=== PATIENT | female | born 1990 | race Caucasian/White ===

== ENCOUNTER 2020-02-07 09:54 | Emergency (ER) | payer OTHER, SELFPAY ==
--- NOTE | 2020-02-07 10:06 | CT_ITS ---
CT HEAD WITHOUT IV CONTRAST INDICATION: Container fell on head. COMPARISON: None available. TECHNIQUE: Multidetector CT acquisitions of the head was obtained without IV contrast. This CT examination was performed using dose optimization techniques as appropriate, variously including the following: *Automated exposure control *Adjustment of mA and/or kV according to patient size (this includes techniques or standardized protocols for targeted exams where dose is matched to indication/reason for exam; i.e. extremities or head) *Use of iterative reconstruction technique FINDINGS: There is no intracranial hemorrhage, hydrocephalus, extra-axial surface collection, midline shift, or other herniation pattern. Live to white matter differentiation is diffusely maintained without evidence of an evolved acute territorial infarct. The basilar cisterns are preserved. No significant soft tissue abnormality. No acute osseous abnormality. The paranasal sinuses and the mastoid air cells are well aerated. CT/CT head/brain wo con IMPRESSION: No acute intracranial abnormality.
--- NOTE | 2020-02-07 10:06 | ED_ITS ---
HPI - Head Injury General Chief complaint: Head Injury Stated complaint: head pain/injury Time Seen by Provider: 02/07/20 09:59 Source: patient Mode of arrival: ambulatory History of Present Illness HPI Narrative: 29-year-old female presenting to ED complaining of headache/injury s/p heavy container falling on head about 1 hour [employer]. Reports was emptying cabinet when heavy object fell out and hit her head. Reports feeling weird with intermittent blurry vision since incident. Denies LOC, nausea/vomiting, numbness/tingling, weakness, vision loss Denies taking anticoagulation MD Complaint: head injury Related Data Allergies Allergy/AdvReac Type Severity Reaction Status Date / Time avocado Allergy Unknown BODY Unverified 11/04/19 16:05 BEING RIPPED APART Penicillins [PENICILLINS] Allergy Unknown N/A Unverified 11/04/19 16:05 LIQUIDE DYE Allergy Unknown N/A Uncoded 11/04/19 16:05 Review of Systems Review of Systems: Constitutional: No Weight loss, No Fever, No Chills ENT/Mouth: + intermittent blurry vision Cardiovascular: No Chest Pain, No SOB Gastrointestinal: No Nausea, No Vomiting Musculoskeletal: No joint pain, No Joint Swelling, No neck pain Skin: No Skin Lesions, No rash Neuro: No Weakness, No Numbness, No Paresthesias, + headache Yes all other systems are reviewed and are negative Neurologic: Denies Sensory deficit (Neuro) [facility] Past Medical History Attestation statement: The following information was validated with the patient. Social History Social History Advance Directives: No Advance Directives Information Provided: No Physical Exam Vital Signs: Vital Signs: Last Vital Signs Temp 97.0 F 02/07/20 10:18 Pulse 77 02/07/20 10:18 Resp 18 02/07/20 10:18 BP 135/87 02/07/20 10:18 Pulse Ox 98 02/07/20 10:18 Body Mass Index 31.8 Const: General: cooperative and healthy appearing Orientation/consci ousness: patient oriented x3 Limitations: no limitations HENMT: Head: Yes normal to inspection, Yes No palpable skull fracture present, Yes atraumatic, No Simon's sign, No hematoma, No palpable skull fracture, No raccoon eyes and No scalp tenderness Ears: hearing grossly normal bilaterally General nose exam: Normal external nose present Face and sinus: Yes normal facial exam Eyes: General: appearance normal, both eyes and all related structures Pupils: Equal, round and reactive pupils present EOM: EOMs intact bilaterally Neck: Other: No midline cervical spinous tenderness Neck: Yes normal visual inspection and Yes no meningeal signs Resp: Effort & Inspection: normal respiratory effort Cardio: Rate: regular rate Skin: Rashes: no rashes Wounds: no wounds Neuro: General: patient oriented x3, gait normal, tone normal, moves all extremities, no meningeal signs, no focal motor deficits and CN's II-XI intact bilaterally Cranial nerves: Yes Equal, round and reactive pupils present Gait exam (Neuro): Normal gait present Motor exam (neuro): 5/5 motor strength present throughout Sensory Exam: No Sensory deficit (Neuro) Coordinat ion: [id number] test normal Romberg Test: Negative Extrem: General: Yes normal to inspection Course Course Course Narrative: * 1055--head CT unremarkable. Imaging results discussed with patient including worrisome signs and symptoms and strict return precautions. Patient verbalized understanding feel safe for discharge home to follow-up with PCP MDM - Head Injury MDM Narrative Medical decision making narrative: On exam VSS, NAD/well-appearing, no midline cervical spine tenderness, no appreciable head trauma or palpable fracture. Likely the concussion vs bruising/hematoma. Low concern for ICH/ fracture [place] head CT rule negative Plan: Head CT per patient request Discharge Plan Discharge Clinical Impression: Closed head injury Qualifiers: Encounter type: initial encounter Qualified Code(s): S09.90XA - Unspecified injury of head, initial encounter Patient Disposition: Home, Self-Care Instructions: Head Injury (ED) Additional Instructions: Your head CT was unremarkable today in the ED. Ice painful area Take Tylenol and Motrin at home every 4-6 hours as directed on the bottle Practice brain rest for the next few days, avoid bright lights, screens Follow-up with her primary care doctor as needed if her symptoms persist or worsen, you have constant worsening headache, vision changes, numbness/tingling, or weakness return to the ED Referrals: Palma Perez DO [Primary Care Provider] - 2 days
[2020-02-07 10:18] VITALS: BP 135/87; PULSE 77; RESP 18; TEMP 36.1; O2SAT 98; BMI 31.8
[2020-02-07] MEDS: Acetaminophen 325 MG TABLET 650 MG PO (10:32)
== END 2020-02-07 11:02 | disposition home or self-care (01) ==
PROVIDERS: Emergency Provider Emergency Medicine; PCP Internal Medicine
DX: S09.90XA Unspecified injury of head, initial encounter (principal); W20.8XXA Other cause of strike by thrown, projected or falling object, initial encounter; Y93.89 Activity, other specified; Y92.010 Kitchen of single-family (private) house as the place of occurrence of the external cause; Y99.9 Unspecified external cause status
CPT/HCPCS: 70450; 99283; 99284

== ENCOUNTER 2020-10-06 10:43 | Emergency (ER) | payer OTHER, SELFPAY ==
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
[2020-10-06 11:09] VITALS: BP 131/84; PULSE 75; RESP 18; TEMP 36.7; O2SAT 99; BMI 31.8
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
== END 2020-10-06 13:35 | disposition home or self-care (01) ==
PROVIDERS: Emergency Provider Internal Medicine; PCP Physician Assistant Medical
DX: S06.0X0A Concussion without loss of consciousness, initial encounter (principal); S13.4XXA Sprain of ligaments of cervical spine, initial encounter; V44.5XXA Car driver injured in collision with heavy transport vehicle or bus in traffic accident, initial encounter; Y93.89 Activity, other specified; Y92.411 Interstate highway as the place of occurrence of the external cause; Y99.9 Unspecified external cause status
CPT/HCPCS: 70450; 72125; 99283; 99284

== ENCOUNTER 2021-03-11 21:09 | Emergency (ER) | payer OTHER, SELFPAY ==
--- NOTE | ~2021-03-11 | XR_ITS ---
EXAMINATION: XR SHOULDER, LEFT CLINICAL INFORMATION: Pain. Fall. COMPARISON: None TECHNIQUE: Three views of the left shoulder. FINDINGS: Humeral head is well-seated in the glenoid fossa. I do not appreciate any acute fracture or dislocation. No bony destructive lesions or significant degenerative changes. Visualized left upper chest unremarkable. XR/XR shoulder LT min 2V IMPRESSION: No acute bony abnormality.
[2021-03-11 21:21] VITALS: BP 136/84; PULSE 85; TEMP 37.2; O2SAT 100; BMI 30.1
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
[2021-03-11] MEDS: Ibuprofen 400 MG TABLET PO (23:07)
[2021-03-11] MEDS: Lidocaine 4 % Patch ADH..PATCH 1 PATCH TRANSDERMA (23:08)
[2021-03-11] MEDS: Acetaminophen 325 MG TABLET 975 MG PO (23:08)
== END 2021-03-11 23:27 | disposition home or self-care (01) ==
PROVIDERS: Emergency Provider Student in an Organized Health Care Education/Training Program
DX: M25.512 Pain in left shoulder (principal)
CPT/HCPCS: 73030; 99284

== ENCOUNTER → 2021-11-07 08:38 | Outpatient (BNVA) | payer OTHER, SELFPAY | PROVIDERS: PCP Internal Medicine; Visit Provider Internal Medicine Rheumatology | DX: A69.20 Lyme disease, unspecified (principal); R53.83 Other fatigue; R53.1 Weakness | CPT/HCPCS: 99202 ==

== ENCOUNTER 2022-03-23 13:00 | Emergency (ER) | payer OTHER, SELFPAY ==
[2022-03-23 13:04] VITALS: BP 126/96; PULSE 83; RESP 20; TEMP 36.8; O2SAT 99; BMI 32.7
--- NOTE | 2022-03-23 13:22 | ED_ITS ---
HPI - General Adult General Chief complaint: General Medical Stated complaint: vaginal issues Time Seen by Provider: 03/23/22 13:13 Source: patient Mode of arrival: ambulatory Limitations: no limitations History of Present Illness HPI narrative: 31 yo female presents to the ER for evaluation of urinary urgency, frequency and dysuria for the last few days. 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 She was started on an antibiotic but has not picked it up yet. She denies any vaginal discharge. She reports the pelvic pain has resolved. She states she is prone to BV. Denies history of recurrent UTIs. She is on control and does not get her period. She denies N/V/D, back pain or fevers. MD complaint: dysuria, frequency and urgency Onset (ago): day(s) Location: pelvis and genitals Radiation: non-radiation Severity: moderate Severity scale (1-10): 8 Quality: burning and aching Pain Consistency: constant Relieving factors: none Exacerbating factors: other (urination) Associated symptoms: other (pink on the toilet paper when she wiped today, no gross hematuria) Treatments prior to arrival: none Related Data Home Medications Medication Instructions Recorded Confirmed drospiren-sivan.estrad-l.mefol 3 1 tab PO DAILY 11/07/21 11/07/21 mg-0.02 mg-0.451 mg(24)/0.451 mg(4)tablet Previous Rx's Medication Instructions Recorded acetaminophen 500 mg tablet 1,000 mg PO QID PRN fever or pain 10/06/20 (Tylenol Extra Strength) #14 tabs ibuprofen 800 mg tablet 800 mg PO Q8H PRN pain #14 tabs 10/06/20 nitrofurantoin 100 mg PO Q12H 7 days #14 caps 03/23/22 monohydrate/macrocrystals 100 mg capsule (Macrobid) phenazopyridine 100 mg tablet 100 mg PO Q8H 6 doses #6 tabs 03/23/22 (Pyridium) Allergies Allergy/AdvReac Type Severity Reaction Status Date / Time avocado Allergy Unknown BODY Verified 03/11/21 21:27 BEING RIPPED APART Penicillins [PENICILLINS] Allergy Unknown Unknown Verified 11/07/21 08:46 LIQUIDE DYE Allergy Unknown N/A Uncoded 11/04/19 16:05 Review of Systems Review of Systems: Yes all other systems are reviewed and are negative [facility] Past Medical History Medical History (Updated 03/23/22 @ 14:12 by DEMETRIS Moraes) Insomnia No known health problems Surgical History (Updated 11/07/21 @ 08:47 by MARK Khalil) No history of previous surgery Family History Family History (Updated 11/07/21 @ 08:48 by MARK Khalil) Maternal Grandmother Arthritis Father Thyroid disease Social History Social History (Updated 11/07/21 @ 08:55 by MARK Khalil) Household Members: Family Alcohol intake: current Alcohol intake frequency: does not drink Patient Tobacco Use Status: Never used Tobacco Substance Use Type: Marijuana Advance Directives: No Advance Directives Information Provided: No Current occupational status: employed 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 Oriented X3. tearful, anxious HEENT: normal inspection CVS: Normal heart rate and rhythm. Pulses normal. Respiratory: No respiratory distress. Skin: Skin warm and dry. Normal skin color. Normal skin turgor. No rashes. AbdL suprapubic tenderness without rebound or guarding, normal active BS x4. pelvic deferred (done yesterday at [facility]) Extremities: normal inspection x4. Neuro: Oriented X 3. No motor deficit. No sensory deficit. Course Course Course Narrative: 31 yo female presenting with increased urinary frequnecy, urgency for the last few days along with new onset dysuria that started today with pink tinge when she wiped today. No vaginal discharge. 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 Clinical presentation is c/w UTI. Will check UA and upreg Reevaluation(s) Reevaluation #1: UA positive for infection, negative for . Will treat with Macrobid and Pyridium. Stable for discharge home. Patient counseled. Medical Decision Making Medical Decision Making MDM Narrative: 31 yo female presenting with urinary symptoms c/w UTI. UA sent showing UTI. Differential Diagnosis Differential Diagnoses: The differential diagnosis associated with the presentation includes UTI, cystitis, STI, pyelonephritis, ovarian cyst, doubt torsion, no current pain Lab Data MDM Lab Attestation statement: I reviewed the patient's lab results. +UA Labs: Lab Results 03/23/22 03/23/22 Range/Units 13:46 13:46 Urine Color Yellow Urine Appearance Cloudy Urine pH 8.0 (5.0-9.0) Ur Specific [place] 1.015 (1.005-1.025) Urine Protein Trace (Neg-Trace) mg/dL Urine Glucose (UA) Negative (Negative) mg/dL Urine Ketones Negative (Negative) mg/dL Urine Blood Small (1+) H (Negative) Urine Nitrite Negative (Negative) Ur Leukocyte Esterase Moderate (2+) H (Negative) Urine RBC >20 H (0-2) /HPF Urine WBC >50 H (0-5) /HPF Ur Squamous Epith Cells 0-2 (0-2) /HPF Urine Bacteria 1+ (None Seen) Hyaline Casts 0-2 (0-2) /LPF Urine Test NEGATIVE (NEGATIVE) External Record Review External record reviewed: Outpatient record and Prior outpatient labs Tests considered The following testing was considered but not selected: labs and std test considered - was just tested yesterday Prescription Management I considered prescription management with: Pain Medication and Antibiotic NSAID and tylenol for pain, PRN pyridium and abx Critical Care Time Critical Care Time Critical Care Time: No Discharge Plan Discharge Clinical Impression: Acute UTI Patient Disposition: Home, Self-Care Instructions: Urinary Tract Infection in Women (ED) Additional Instructions: Your urinalysis was positive for infection. Your urine was negative for . Take the prescribed antibiotic as directed. Complete the entire course and not miss any doses. Take the prescribed Pyridium medication for bladder pain, this Tino turn your urine orange and that is a normal side effect. Drink plenty of fluids. No sexual activity until it your symptoms are completely resolved and you have completed antibiotics. Follow-up with your OBGYN. If you develop new or worsening symptoms call 911 or come back to the ER for further evaluation. Prescriptions: New phenazopyridine [Pyridium] 100 mg tablet 100 mg PO Q8H Qty: 6 0RF nitrofurantoin monohyd/m-cryst [Macrobid] 100 mg capsule 100 mg PO Q12H 7 Days Qty: 14 0RF Rx Instructions: must administer with a meal/food No Action ibuprofen 800 mg tablet 800 mg PO Q8H PRN (Reason: pain) Qty: 14 0RF acetaminophen [Tylenol Extra Strength] 500 mg tablet 1,000 mg PO QID PRN (Reason: fever or pain) Qty: 14 0RF drospirenone-e.estradiol-lm.FA 3-0.02-0.451 mg (24) (4) tablet 1 tab PO DAILY
[2022-03-23 13:58] LABS: UPreg QC Valid YES; Urine Pregnancy NEGATIVE (NEGATIVE)
[2022-03-23 14:07] LABS: Appearance Urine Cloudy; Color Urine Yellow; Glucose Urine UA Negative (Negative); Leukocyte Esterase Urine Moderate (2+) (Negative); Nitrite Urine Negative (Negative); Specific Gravity - Urine 1.015 (1.005-1.025); UMIC TRIGGER UACC YES; Urine Blood Small (1+) (Negative); Urine Ketones Negative (Negative); Urine Protein Trace mg/dL (Neg-Trace)
[2022-03-23 14:08] LABS: Bacteria Urine 1+ (None Seen); Hyaline Casts Urine 0-2 /LPF (0-2); RBC Urine >20 /HPF (0-2); Squamous Epithelial Cell Urine 0-2 /HPF (0-2); UACC Culture Trigger YES; WBC Urine >50 /HPF (0-5)
[2022-03-23] MEDS: Nitrofurantoin Monohyd/M-Cryst 100 MG CAPSULE PO (14:17)
[2022-03-23] MEDS: Phenazopyridine HCL 100 MG TABLET PO (14:17)
== END 2022-03-23 14:22 | disposition home or self-care (01) ==
PROVIDERS: Physician Assistant; Emergency Provider Student in an Organized Health Care Education/Training Program
DX: N39.0 Urinary tract infection, site not specified (principal); F12.90 Cannabis use, unspecified, uncomplicated
CPT/HCPCS: 81001; 81003; 81025; 87086; 99283

== ENCOUNTER 2024-04-24 11:53 | Emergency (ER) | payer OTHER, SELFPAY ==
--- NOTE | ~2024-04-24 | XR_ITS ---
CLINICAL HISTORY: back pain s p lifting 3 views lumbar spine Comparison: None Findings: Normal alignment. No acute fractures or dislocation. No significant degenerative change. IMPRESSION: No acute findings. This document has been electronically signed by: Zain Alcazar MD on 04/24/2024 12:43:49
--- NOTE | ~2024-04-24 | XR_ITS ---
CLINICAL HISTORY: mid back pain after lifting child 3 views thoracic spine Comparison: None Findings: Normal alignment. No acute fractures or dislocation. No significant degenerative change. IMPRESSION: No acute findings. This document has been electronically signed by: Zain Alcazar MD on 04/24/2024 12:43:57
[2024-04-24 11:58] VITALS: BP 111/75; PULSE 80; RESP 20; TEMP 37; O2SAT 100; BMI 34.0
--- NOTE | 2024-04-24 11:59 | ED.BACK ---
HPI - Back Pain/Injury General Chief Complaint: Back Pain/Injury Stated Complaint: back pain Time Seen by Provider: 04/24/24 13:43 Source: patient Mode of arrival: ambulatory Limitations: no limitations History of Present Illness ED Provider: Zoie King NP HPI Narrative: Patient is a 33 year old female with past medical history of multiple sclerosis on Bruimvi followed by [facility] who presents emergency department for evaluation of back pain. She reports over the past 2 days she has been experiencing pain to the midthoracic back, onset 1 day following lifting her 70lb dog into the bathtub, described as an aching sensation. Denies radiation of pain. Exacerbates with movement of torso and arms. Previously using naproxen with some relief. Reports last taking naproxen 1 hour prior to arrival. Denies fevers, chills, burning with micturition, urinary frequency/urgency/hesitancy, bladder or bowel dysfunction, numbness or tingling of the perineum or bilateral legs. Denies any recent surgical procedures, any known immune compromising conditions, personal history of cancer, or IV drug usage. MD elicited complaint: back pain Related Data Home Medications ?Medication ?Instructions ?Recorded ?Confirmed drospiren-e.estrad-l.mefol 3 1 tab PO DAILY 11/07/21 11/07/21 mg-0.02 mg-0.451 mg(24)/0.451 mg(4)tablet Previous Rx's ?Medication ?Instructions ?Recorded acetaminophen 500 mg tablet 1,000 mg (2 x 500 mg) PO QID PRN 10/06/20 (Tylenol Extra Strength) fever or pain #14 tabs ibuprofen 800 mg tablet 800 mg PO Q8H PRN pain #14 tabs 10/06/20 nitrofurantoin 100 mg PO Q12H 7 days #14 caps 03/23/22 monohydrate/macrocrystals 100 mg capsule (Macrobid) phenazopyridine 100 mg tablet 100 mg PO Q8H 6 doses #6 tabs 03/23/22 (Pyridium) Allergies Allergy/AdvReac Type Severity Reaction Status Date / Time avocado Allergy Unknown BODY Verified 04/24/24 12:03 BEING RIPPED APART Penicillins [PENICILLINS] Allergy Unknown Unknown Verified 04/24/24 12:03 LIQUIDE DYE Allergy Unknown N/A Uncoded 04/24/24 12:03 Review of Systems Review of Systems: Yes all other systems are reviewed and are negative [facility] Past Medical History Attestation statement: The following information was validated with the patient. Source: old records reviewed Medical History Insomnia No known health problems Surgical History No history of previous surgery Family History Family History (Updated 11/07/21 @ 08:48 by MARK Khalil) Maternal Grandmother Arthritis Father Thyroid disease Social History Social History (Updated 11/07/21 @ 08:55 by MARK Khalil) Household Members: Family Alcohol intake: current Alcohol intake frequency: does not drink Patient Tobacco Use Status: Never used Tobacco Smoked in Last 30 Days: No Use of substances other than those prescribed or required for medical reasons: Yes Substance Use Type: Marijuana Substance Use Frequency: Occasionally Advance Directives: No Advance Directives Information Provided: Yes Patient : No Current occupational status: employed 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 No acute distress.?Normal affect. Eyes: Pupils equal, round and reactive to light.? ENT: Pharynx normal.?? Neck: Normal inspection.? Neck supple.?? CVS: Heart sounds normal. Normal heart rate and rhythm.? Pulses normal; bilateral radial pulses 2+, bilateral posterior tibial/dorsalis pedis pulses 2+.? Respiratory: No respiratory distress.? Lung sounds clear to auscultation bilaterally?? Abdomen: Soft and non-tender. Normoactive bowel sounds. No pulsatile mass.?? Skin: Skin warm and dry.? Normal skin color.? Normal skin turgor.?? Extremities: No lower extremity edema.? No calf ttp? Back: + mild tight lower thoracic paraspinal muscular tenderness No CVA tenderness. No midline spinal tenderness, step-off's, or deformity. Full ROM intact in bilateral lower extremities. Straight leg test negative on right; Straight leg test negative on left. No rashes, lesions, areas of induration or fluctuance, or signs of infection noted., Neuro: Moves all extremities spontaneously. 5/5 strength in hip extension/flexion, abduction, adduction. Sensation to light touch intact bilaterally. Patellar and Achilles reflex 2+ bilaterally. No ataxia, gait normal and steady.. No focal neuro deficits. Course Course Course Narrative: This is a Rapid Medical Examination (RME) performed by Flor Jaramillo PA-C in triage. Full HPI, ROS, assessment and treatment plan per primary provider in the Main ED. 33 yo female hx of MS on Bruimvi here for eval of mid back pain x2 days. pain began the morning after after lifting her child into the bath tub. described as an aching sensation to central back. no radiation down LEs. pain is worse w/ movement. took naproxen w/ some relief. last naproxen was 1 hr ago. no bowel or bladder incontinence or retention, no saddle anesthesia, no numbness/tingling/weakness of the LEs. +appears uncomfortable. ambulating w/ slow gait Plan: xrs Reevaluation(s) Reevaluation #1: advised by nursing staff the patient has ultimately decided to leave the department without completing treatment. Patient became agitated and angry yelling at staff. She had contacted the hospital switchboard, contacted hospital security as well as calling 911 reporting that nobody has been in the room to see her, that nobody was addressing her pain. She reported to another staff member I have MS I need something stronger than a muscle relaxer for wanted to stay at home and play around with pain pills I could have done that myself . Yelling out profanities, verbally insulting multiple staff members. she subsequently trashed the room, throwing water and food all throughout the room flipping her mattress over before ultimately walking out. Time: 16:54 Medications Administered Discontinued Medications Generic Name Dose Route Start Last Admin Trade Name Freq PRN Reason Stop Dose Admin Cyclobenzaprine HCl 10 mg 04/24/24 14:58 04/24/24 15:24 Cyclobenzaprine Hcl 10 Mg Tablet PO 04/24/24 14:59 10 mg ONCE ONE Administration Medical Decision Making Medical Decision Making [facility] Narrative: Patient is a 33 year old female with past medical history of multiple sclerosis on Bruimvi who presents emergency department for evaluation of lower thoracic back pain, no midline tenderness, step-offs, deformities, pain is rather to the lower thoracic paraspinal muscle region on the right. pain began 1 day following lifting her dog into the bathtub and is exacerbated with movement of the torso as well as the upper extremities. clinically have higher suspicion for muscular etiology although can not completely exclude herniated disc. On neurological exam there are no deficits. No findings to suggest cauda equina syndrome. XR of the lumbar and thoracic spine are without acute osseous abnormality, no apparent fracture. No recent fevers, unintentional weight loss, history of IVDA, high-risk past medical history, immunosuppression, recent surgery or lumbar puncture to suggest spinal infection, epidural abscess, malignancy. Not consistent with AAA or dissection. No genitourinary symptoms, afebrile, no CVA tenderness, unlikely urinary tract infection, pyelonephritis, renal colic. No history of nephrolithiasis/ureteral calculi. We will try cyclobenzaprine symptomatic management at this time. Differential Diagnosis Differential Diagnoses: The differential diagnosis associated with the presentation includes ( see narrative above) Admission/Observation Consideration of admission/observation: Escalation of care including admission/observation considered ( see narrative above) Lab Data [facility] Lab Attestation statement: I reviewed the patient's lab results. ( urinalysis without evidence of infection or microscopic hematuria to favor acute genitourinary pathology) Labs: Lab Results 04/24/24 Range/Units 14:12 Urine Color Yellow Urine Appearance Clear Urine pH 7.5 (5.0-9.0) Ur Specific [place] <= 1.005 (1.005-1.025) Urine Protein Negative (Neg-Trace) mg/dL Urine Glucose (UA) Negative (Negative) mg/dL Urine Ketones Negative (Negative) mg/dL Urine Blood Negative (Negative) Urine Nitrite Negative (Negative) Ur Leukocyte Esterase Negative (Negative) Urine RBC 0-2 (0-2) /HPF Urine WBC 0-5 (0-5) /HPF Ur Squamous Epith Cells 0-2 (0-2) /HPF Urine Bacteria None Seen (None Seen) Hyaline Casts 0-2 (0-2) /LPF Urine Test NEGATIVE (NEGATIVE) Independent Interpretation I performed an independent interpretation of an: Plain X-Ray Radiology Impression Discussion of test interpretation with radiology: I have reviewed the radiologist's reading. Radiologist Impression: 3 views thoracic spine Comparison: None Findings: Normal alignment. No acute fractures or dislocation. No significant degenerative change. IMPRESSION: No acute findings. 3 views lumbar spine Comparison: None Findings: Normal alignment. No acute fractures or dislocation. No significant degenerative change. IMPRESSION: No acute findings. External Record Review External record reviewed: Outpatient record Prescription Management I considered prescription management with: Pain Medication Discharge Plan Discharge Clinical Impression: Back pain Patient Disposition: Left W/O Completing Treatment Prescriptions: No Action ibuprofen 800 mg tablet 800 mg PO Q8H PRN (Reason: pain) Qty: 14 0RF acetaminophen [Tylenol Extra Strength] 500 mg tablet 1,000 mg PO QID PRN (Reason: fever or pain) Qty: 14 0RF phenazopyridine [Pyridium] 100 mg tablet 100 mg PO Q8H Qty: 6 0RF nitrofurantoin monohyd/m-cryst [Macrobid] 100 mg capsule 100 mg PO Q12H 7 Days Qty: 14 0RF Rx Instructions: must administer with a meal/food drospirenone-e.estradiol-lm.FA 3-0.02-0.451 mg (24) (4) tablet 1 tab PO DAILY Interventions: ED Discharge Assessment Last Done: 04/24/24 16:50 Discharge Date/Time: 04/24/24 16:52 Print Language: Sami
--- OUTSIDE RECORDS SUMMARY | 2024-04-24 13:26 | XMS_ITS | Encounter Summary ---
Author Organization [facility] Address [address] [place] [address] Phone Care Team Providers Care Home Health Occupational Therapist Name Role Phone Unavailable Primary Care Provider Unavailabl e Encounter Details Date Type Department Care Team (Late st Contact Info) Description 11/20/2010 Documentation [facility] [address] [place] [address] Family Medicine, Physician [address] [place], [place] [id number] Social History Tobacco Use Types Packs/Day Years Used Date Smoking Tobacco: Never Assessed Comments Unknown Sex and Gender Information Value Date Recorded Sex Assigned at Not on file Legal Sex Female 4:36 PM EDT Gender Identity Not on file Sexual Orientation Not on file documented as of this encounter Plan of Treatment Not on file documented as of this encounter Visit Diagnoses Not on filedocumented in this encounter
--- OUTSIDE RECORDS SUMMARY | 2024-04-24 13:26 | XMS_ITS | Encounter Summary ---
Author Organization [facility] Address [address] [place] [id number] Phone Care Team Providers Care New Order Clerk Name Role Phone Unavailable Primary Care Provider Unavailabl e Encounter Details Date Type Department Care Team (Late st Contact Info) Description 11/29/2015 Documentation [facility] [place] [address] Family Medicine, Physician [facility] [place], [place] [phone] Social History Tobacco Use Types Packs/Day Years [...]
--- OUTSIDE RECORDS SUMMARY | 2024-04-24 13:28 | XMS_ITS | Encounter Summary ---
Author Organization [facility] Address [address] [place] [address] Care Team Providers Care Cycle Specialist Name Role Phone Mara Barakat MD Primary Care Provider [phone] Reason for Visit * Reason Onset Date Comments AUTH NOT REQRD, SOLUMEDROL 04/15/2024 Encounter Details Date Type Department Care Team (Late st Contact Info) Description 04/15/2024 Telephone [facility] [address] [facility] [address] [place] [address] Fabi Arguello, DEMETRIS [address] [place] [address] [place] [address] AUTH NOT REQRD, SOLUMEDROL Social History Tobacco Use Types Packs/Day Years Used Date Smoking Tobacco: Never Smokeless Tobacco: Never Alcohol Use Standard Drinks/Week Comments Not Currently 0 (1 standard drink = 0.6 oz pur e alcohol) Comments Unknown Sex and Gender Information Value Date Recorded Sex Assigned at Not on file Legal Sex Female 4:36 AM EST Gender Identity Not on file Sexual Orientation Not on file documented as of this encounter Progress Notes * Keagan Matthews - 04/15/2024 2:36 PM EST Per Latia @ [facility] medical drug auth dept- auth not reqrd for [id number] ot [id number] (call #JuanityS,04/15/24,2:22pm) documented in this encounter Plan of Treatment Upcoming Encounters Date Type Department Care Team (Late st Contact Info) Description 06/01/2024 3:30 PM EDT Office Visit [facility] [place] [address] [facility] [address] [place] [phone] Saul Horn MD [address] [facility] [address] [place] [phone] 06/17/2024 2:30 PM EDT Office Visit Adult Medicine [facility] [place] [address] [place] [address] Mara Barakat MD [address] [place] [address] 06/30/2024 1:00 PM EDT Appointment [facility] - [place] [address] [facility] [address] [place] [phone] documented as of this encounter Visit Diagnoses Not on filedocumented in this encounter Additional Health Concerns Infection Onset Date Last Indicated Resolved Time Varicella 04/01/2024 04/01/2024 documented as of this encounter Care Teams Cycle Specialist Relationship Specialty Start Date End Date Mara Barakat MD [address] [place] [address] PCP - General Internal Medicine 10/30/21 documented as of this encounter
--- OUTSIDE RECORDS SUMMARY | 2024-04-24 13:28 | XMS_ITS | Encounter Summary ---
Author Organization [facility] Address [address] [place] [address] Phone Care Team Providers Care Or Assistant Name Role Phone Unavailable Primary Care Provider Unavailabl e Encounter Details Date Type Department Care Team (Late st Contact Info) Description 10/03/2016 Conversion Encounter [facility] - [address] [phone] Social History Tobacco Use Types Packs/Day Years [...]
--- OUTSIDE RECORDS SUMMARY | 2024-04-24 13:28 | XMS_ITS | Encounter Summary ---
Author Organization [facility] Address [address] [place] [address] Care Team Providers Care Paint Technician Name Role Phone Mara Barakat MD Primary Care Provider [phone] Encounter Details Date Type Department Care Team (Late st Contact Info) Description 04/15/2024 1:00 PM EST Office Visit [facility] for [place] [facility] [address] [place] [address] Fabi Arguello, PA [address] [place] [address] [place] [address] MS (multiple sclerosis) ([facility]) (Primary Dx) Social History Tobacco Use Types Packs/Day Years [...] on file documented as of this encounter Last Filed Vital Signs Vital Sign Reading Time Taken Comments Blood Pressure 122/77 04/15/2024 1:16 PM EST Pulse 80 04/15/2024 1:16 PM EST Temperature 37.1 ??C (98.7 ??F) 04/15/2024 1:16 PM ES T Respiratory Rate - - Oxygen Saturation 98% 04/15/2024 1:16 PM EST Inhaled Oxygen Concentration - - Weight 81.6 kg (180 lb) 04/15/2024 1:16 PM EST Height 157.5 cm (5' 2 ) 04/15/2024 1:16 PM EST Body Mass Index 32.92 04/15/2024 1:16 PM EST documented in this encounter Progress Notes * DEMETRIS Villalobos - 04/15/2024 1:00 PM EST HPI: Alexis Brito is a 33 y.o. year old female referred to our center by Mara Barakat MD for Multiple sclerosis. Disease Summary Date of onset/Initial symptom presentation: Date of diagnosis of MS: Disease course at onset: Current disease course: Last MS exacerbation: Previous disease therapies(reason for switch): N/AA Current disease therapy: Briumvi 07/2023 Most recent MRI Brain: T2 changes both supratentorial and infratentorial with a new saldana radiata lesion compared to 04/2023 Most recent MRI Cervical spine: Most recent MRI Thoracic spine: CSF: IgG 2.44 , +8 bands white blood cells 2 protein 38 JCV serology result and date: MS mimickers: MOG negative AQP 4 antibody negative 540 Interval history: Patient returns for urgent follow up visit. 03/10 started feeling painful sensation in LUE Intermittent squeezing upper arm and foream Feels sore Weds did a lot of walking Legs sore after and now feeling funny , describes as a feeling like there are bubbles in her legs Also notes a cold burning sensation lower back on and off. She continues to note anxiety related to her diagnosis. Last visit history: 33 yo female with PMH of skin rash , PTSD OCD major depressive disorder her neurological symptoms started 3-4 yrs ago she started experiencing blurry vision on Rt eye associated with pain to, she wasevaluated with ophthalmology , she saw Dr Jhaveri , there was unclear diagnosis , possible optic neuritis , patient was not directed to be seen by neurology it took her a while ,she was referred toMRI brain and was not followed up she was referred to neurology after multiple visits She was evaluated with Dr Aceves at [facility] , MRI brain and spine was done which showed lesions consistent with multiple sclerosis she had a spinal tap done with elevated IgG index and +8 oligoclonal specific bands, she was diagnosed with multiple sclerosis and started on Briumvi She had tightness around end of February In past she had episode of Lt eye blurry vision in the past lasting for about couple of hours she cannot recall exact She was started on Brumvi in July 2023 , she tolerated the medication well no side effects she had facial flushing 1 time but was challenged by Benadryl She is sexually active she is on control , and condoms she unsure if she want to be she is thinking long-term adoption Her memory has been very good and does not notice any change in her cognition She denies any MS Hug Active Symptoms: Bowel/bladder:she has overactive bladder , she was having urinary accidents , she was encouraged to do physical Depression/anxiety: she had anxiety in past , she is being more depressed patient admits that she had suicidal ideation in the past not anymore and she never had a plan she still wants to live and betreated as she is negatively affected by her diagnoses she is seeing therapy the diagnosis has beencarrying huge toll on her Gait impairment: No limitation on how far she walk Fatigue: very rarely she has to need lap , she is always active Taking vitamin D supplementation: yes Heat Sensitivity:yes Past or present Lhermitte's: yes Past Medical History: Diagnosis Date Anogenital HSV infection DX:Anogenital HSV infection Anxiety DX:Anxiety; COMMENT: clinical support options Chlamydia infection 12/20/2018 DX:Chlamydia infection; COMMENT: 12/2018, 11/2020 Chronic insomnia DX:Chronic insomnia History of marijuana use 03/17/2024 Marijuana smoker, episodic DX:Marijuana smoker, episodic Multiple sclerosis (CMS/HCC) DX:Multiple sclerosis (HCC) Vulvar burning 01/22/2018 DX:Vulvar burning Current Outpatient Medications Medication Sig Dispense Refill aluminum chloride (Drysol Dab-O-Matic) 20 % external solution APPLY ONCE DAILY AT BEDTIME, ONCE SYMPTOMS STOP MAY USE 1-2 TIMES WEEKLY. WASH OFF IN AM Cetaphil cream Apply topically. doxylamine succinate (UNISOM, DOXYLAMINE, ORAL) Take 25 mg by mouth. ibuprofen (ADVIL,MOTRIN) 800 mg tablet Take 1 tablet by mouth every 8 hours as needed for Pain for up to 30 days. lactic vvbr-fngwla-hbahtmqwj (Phexxi) 1.8-1-0.4 % gel Place 1 Applicatorful vaginally as needed (upto one hour before each act of intercourse). An additional dose is needed if vaginal intercourse does not occur within 1 hour of insertion (Patient not taking: Reported on 04/15/2024) lidocaine HCL 3 % cream Apply 1 Squirt topically 3 times daily as needed (pain). mometasone (ELOCON) 0.1 % cream Apply bid x 2-3 weeks (Patient not taking: Reported on 04/15/2024) multivitamin (Multiple Vitamins) tablet Take by mouth daily. norethindrone-ethinyl estradiol (JUNE03/08) 1 mg-20 mcg (21)/75 mg (7) per tablet Take 1 Tabletby mouth daily. tacrolimus (PROTOPIC) 0.1 % ointment Apply to affected are BID tretinoin (RETIN-A) 0.025 % cream Apply small amount QHS ublituximab-xiiy (Briumvi) 25 mg/mL solution injection Infuse 1 mL (25 mg total) into a venous catheter every 6 (six) months. vitamin A & D cream Apply topically 2 (two) times a day. No current facility-administered medications for this visit. 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 Neurologic Exam: Vitals: 04/15/24 1316 BP: 122/77 Pulse: 80 Temp: 37.1 ??C (98.7 ??F) SpO2: 98% MS: AOx3 CN: perrla, V1-3 intact to LT, face symmetric, bilateral SCM/trapezius 5/5, tongue/uvula/palate midline Motor: 5/5 in all extremities Sensation: Intact to light touch, temperature, and vibration in all extremities Reflexes: 2+ in bilateral biceps and patellae, toes downgoing bilaterally Cerebellar: FNF intact bilaterally, FFM intact bilaterally, TORY intact bilaterally, tandem gait normal, romberg negative Labs: Ordered Imaging: No images were reviewed by me. MRI brain: T2 changes both supratentorial infratentorial with a new 10 mm lesion in the left coronaradiata Atrophy of the orbital segment of the optic nerves no abnormal evidence MRI C spine: T2 change at the level of C4 and C6 unchanged MRI T spine: Will order next visit Chicken pox vaccine Opyh appt 06/16 A/P: Alexis Brito is a 33 y.o. year old female referred to our center by Mara Barakat MD for evaluation and management of multiple sclerosis patient currently on Brumvi , presenting for an urgent visit today to discuss LUE pain that has been present for 2 weeks along w abnormal sensations in her legs. Case discussed with Dr. Horn. Since last MRI brain revealed a new saldana radiata lesion, we offered to treat with IV solu-medrol. Pt does have history of depression and anxiety, and we had a thorough discussion regarding potential for psychiatric side effects of solu-medrol. Pt understands and wishes to proceed. She agrees to report any change in mood during steroid treatment and ifneeded we will d/c prior to the full 3 days of treatment. -IV solumedrol x 3 days while monitoring for SE to treat current symptoms -continue Briumvi -Preinfusion labs as per [facility] protocol -patient handed information Brumvi -MRI brain/C/T spine with and without contrast to assess current disease burden in 6 months -RTC in 2 months for follow up The patient and I discussed the clinical picture during today's appointment. Additional time was spent prior to the actual appointment reviewing records, lab values and imaging results and preparing documentation for today's visit. There was also time spent following the in person visit documenting, arranging for further diagnostic testing and follow-up appointments. The entire time spent in thisprocess was greater than 40 minutes. The majority of the actual qhba-wm-cscp visit was spent counseling the patient with respect to the current neurological picture. DEMETRIS Villalobos documented in this encounter Plan of Treatment Upcoming Encounters Date Type Department Care Team (Late st Contact Info) Description 06/01/2024 3:30 PM EDT Office Visit [facility] for [place] - [place] [address] [place] [phone] Saul Horn MD [address] [address] [place] [phone] 06/17/2024 2:30 PM EDT Office [place] [facility] [place] [address] [place] [address] Mara Barakat MD [address] [facility] [place] [address] 06/30/2024 1:00 PM EDT Appointment [facility] [place] Outpatient Rehabilititation - [place] [address] [phone] documented as of this encounter Visit Diagnoses Diagnosis MS (multiple sclerosis) ([facility])- Primary Multiple sclerosis documented in this encounter Historical Medications * This list may reflect changes made after this encounter. vitamin A & D cream Apply topically 2 (two) times a day. added in this encounter Additional Health Concerns Infection Onset Date Last Indicated Resolved Time Varicella 04/01/2024 04/01/2024 documented as of this encounter Care Teams Paint Technician Relationship Specialty Start Date End Date Mara Barakat MD [address] [facility] [place] [address] PCP - General Internal Medicine 10/30/21 documented as of this encounter
--- OUTSIDE RECORDS SUMMARY | 2024-04-24 13:28 | XMS_ITS | Clinical Summary ---
Author Organization [facility] Address [address] [place] [id number] Phone Care Team Providers Care Title Insurance Sales Representative Name Role Phone Unavailable Primary Care Provider Unavailabl e Immunizations Immunization Administration Dates Next Due DTP 06/24/1994, 2,07/16/1990,02/27,1989 HPV, Quadrivalent 04/05/2008 Hep B, ped/adol 09/28/2001,01/27/2001,10/09/1998 Hib (PRP-T) 02/02/1991, 1,07/16/1990,02/27 Influenza, injectable, trivalent 04/05/2008 MMR 06/24/1994,02/02/1991 Meningococcal Conj (Menactra) MCV4P 04/05/2008 OPV 06/24/1994, 2,02/27/1990,12/24 Td (adult) (MBL), 2 Lf tetan us toxoid, PF, adsorbed 01/27/2001 Tdap 04/05/2008 Varicella 04/05/2008,10/09/1998 Family History Relation Name Status Comments Mother Alive Mother: Obesity , hearing impaired Other 1 Family history of Migraines, Family history of Deafness, Family history of Asthma Other 2 Family history of Migraines, Family history of Deafness, Family history of Asthma Social History Tobacco Use Types Packs/Day Years Used Date Smoking Tobacco: Never Assessed Comments Unknown Sex and Gender Information Value Date Recorded Sex Assigned at Not on file Legal Sex Female 4:36 PM EDT Gender Identity Not on file Sexual Orientation Not on file Plan of Treatment Health Maintenance Due Date Last Done Comments HPV Vaccines (3 - 3-dose series) 03/22/2014 12/28/2013, 04/05/2008 DTaP,Tdap,and Td Vaccines (7 - Td or Tdap) 04/05/2018 04/05/2008, 01/27/2001, 06/24/1994, Additional history exists Influenza Vaccines (#1) 2023 04/05/2008 COVID-19 Vaccine ( season) 2023 HIB Vaccines Completed 02/02/1991, 08/18, 07/16/1990, Additional history exists IPV Vaccines Completed 06/24/1994, 03/20, 02/27/1990, Additional history exists MMR Vaccines Completed 06/24/1994, 02/02/1991 Hepatitis B Vaccines Completed 09/28/2001, 01/27/2001, 10/09/1998 Meningococcal Vaccine Completed 04/05/2008 Varicella Vaccines Completed 04/05/2008, 10/09/1998 Hepatitis A Vaccines Aged Out No long er eligible based on patient's age to complete this topic Men B Vaccine Aged Out No longer elig ible based on patient's age to complete this topic Pneumococcal Vaccine Aged Out No long er eligible based on patient's age to complete this topic
--- OUTSIDE RECORDS SUMMARY | 2024-04-24 13:28 | XMS_ITS | Encounter Summary ---
Author Organization [facility] Address [address] [place] [address] Care Team Providers Care Sales Exec Name Role Phone Mara Barakat MD Primary Care Provider [phone] Reason for Visit * Reason Onset Date Comments refferal 03/31/2024 Encounter Details Date Type Department Care Team ([facility] Contact Info) Description 03/31/2024 Telephone Adult Medicine [facility] [place] [address] [place] [address] Mara Barakat MD [address] [place] [address] refferal Social History Tobacco Use Types Packs/Day Years [...] as of this encounter Progress Notes * Aleena Valdez, CARRIE - 04/07/2024 11:23 AM EST jeanei Call to pt. Pt has been seen at the [facility] at [address] [place] [address]. She was seen on 04/01/24 , she requested her records from [facility] to be sent to [facility]. [facility] also put a referral in for pt to see ophthalmology, Pt aware referral was just placed, to call back after 10 working days if she has not received a call or a letter, Infusion has been set up according to pt See notes * Sonia Brito - 03/31/2024 3:18 PM EST Patient would like referral set to [facility] Neurology [address] [facility] [address] [address] patient has appt 03/31 9am She does not want to go to [facility] which is where she was originally referred to documented in this encounter Plan of Treatment Upcoming Encounters Date Type Department Care Team (Late st Contact Info) Description 06/01/2024 3:30 PM EDT Office Visit [facility] for [place] - [address] [phone] Saul Horn MD [address] [phone] 06/17/2024 2:30 PM EDT Office Visit Adult Medicine [place] [facility] [place] [address] [place] [address] Mara Barakat MD [address] [place] [address] 06/30/2024 1:00 PM EDT Appointment [facility] for [place] Outpatient Rehabilititation - [address] [phone] documented as of this encounter Visit Diagnoses Not on filedocumented in this encounter Additional Health Concerns Infection Onset Date Last Indicated Resolved Time Varicella 04/01/2024 04/01/2024 documented as of this encounter Care Teams Sales Exec Relationship Specialty Start Date End Date Mara Barakat MD [address] [place] [address] PCP - General Internal Medicine 10/30/21 documented as of this encounter
--- OUTSIDE RECORDS SUMMARY | 2024-04-24 13:28 | XMS_ITS | Encounter Summary ---
Author Organization [facility] Address [address] [place] [address] Care Team Providers Care Supervisor Drying And Winding Name Role Phone Mara Barakat MD Primary Care Provider [phone] Reason for Referral * Consultation (Routine) - Pending Review Specialty Diagnoses / Procedures Referred By Therese ibrahim Referred To Contact Speech Pathology / Speech Therapy Diagnoses Multiple sclerosis (CMS/HCC) High risk medication use Saul Horn MD [address] [address] Phone: tel: fax: Referral ID Status Reason Start Date Expiration Date Visits Requested Visits Authorized [id number] Pending Review Specialty Services Required 04/01/2024 04/01/2025 1 1 * Consultation (Routine) - Pending Review Specialty Diagnoses / Procedures Referred By Therese ibrahim Referred To Contact Occupational Therapy Diagnoses Multiple sclerosis (CMS/HCC) High risk medication use Saul Horn MD [address] [address] Phone: tel: fax: Referral ID Status Reason Start Date Expiration Date Visits Requested Visits Authorized [id number] Pending Review Specialty Services Required 04/01/2024 04/01/2025 1 1 * Consultation (Routine) - Authorized Specialty Diagnoses / Procedures Referred By Contac t Referred To Contact Physical Therapy Diagnoses Multiple sclerosis (CMS/HCC) High risk medication use Saul Horn MD 175 [facility] [address] [place] [address] Phone: tel: fax: Referral ID Status Reason Start Date Expiration Date Visits Requested Visits Authorized [id number] Authorized Specialty Services Required 04/01/2024 04/01/2025 21 21 Encounter Details Date Type Department Care Team (Late st Contact Info) Description 04/01/2024 9:00 AM EST Consult [facility] [address] [phone] Saul Horn MD [address] [address] Multiple sclerosis (CMS/HCC) (Primary Dx); High risk medication use Social History Tobacco Use Types Packs/Day Years [...] as of this encounter Progress Notes * Saul Horn MD - 04/01/2024 9:00 AM EST HPI: Alexis Brito is a 33 [...] both supratentorial and infratentorial with a new coronary radiata lesion compared to 04/2023 Most recent MRI Cervical spine: Most recent MRI Thoracic spine: CSF: IgG 2.44 , +8 bands white blood cells 2 protein 38 JCV serology result and date: MS mimickers: MOG negative AQP 4 antibody negative 540 33 yo female with PMH of skin [...] She was evaluated with Dr Aceves at [facility] , MRI brain and spine was [...] Pain for up to 30 days. lactic dmkq-lnqhzs-dzsiqdjxc (Phexxi) 1.8-1-0.4 % gel Place 1 Applicatorful vaginally as needed (upto one hour before each act of intercourse). An additional dose is needed if vaginal intercourse does not occur within 1 hour of insertion lidocaine HCL 3 % cream Apply 1 Squirt topically 3 times daily as needed (pain). mometasone (ELOCON) 0.1 % cream Apply bid x 2-3 weeks multivitamin (Multiple Vitamins) tablet Take by mouth daily. norethindrone-ethinyl estradiol (JUNEL FE 03/08) 1 mg-20 mcg (21)/75 mg (7) per tablet Take 1 Tabletby mouth daily. tacrolimus (PROTOPIC) 0.1 % ointment Apply to affected are BID tretinoin (RETIN-A) 0.025 % cream Apply small amount QHS ublituximab-xiiy (Briumvi) 25 mg/mL solution injection Infuse 1 mL (25 mg total) into a venous catheter every 6 (six) months. No current facility-administered medications for this visit. 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 Neurologic Exam: Visit Vitals Smoking Status Never MS: AOx3 CN: perrla, V1-3 intact to [...] MRI T spine: Will order next visit A/P: Alexis Brito is a 33 y.o. year old female referred to our center by Mara Barakat MD for evaluation and management of multiple sclerosis patient currently on Brumvi . Based on the clinical history, neurologic exam, and imaging, I do think that the diagnosis is most consistent with relapsing remitting multiple sclerosis. I would like to repeat an MRI of the brain, cervical, and thoracic spine to assess the current disease burden. I would also like to check bloodwork for MS mimickers. Werosyve discussed the array of services the [facility] has to offer patients and I have recommended the following as listed below. We spent an extensive time discussing the pathology of MS and how this affects the central nervous system and the role of treatment to change the disease outcome Patient has been stable since she was started on Briumvi in July 2023 her MRIs recently did show new lesion in the brain compared to April 2023 discussed with the patient that that is going to be a new baseline to compare next MRIs as the patient was off treatment for a while prior to starting the medication and also the medication takes time to fully work We discussed continuation of treatment in our center we discussed details of B- cell therapy, she want to go ahead and be transition discussed all details of B- cell therapy including method of administration, study results, safety profile and expectation , also discussed slight risk of infection andvaccine response patient expressed understanding and want go ahead and be evaluated for prescreening for treatment. A huge part of the visit was directed to Mirian counseling and excepting the diagnosis and discussing methods and resources to help with the patient mood depression and anxiety -Brumvi will starter form filled -Preinfusion labs as per [facility] protocol -patient handed information Brumvi -MRI brain/C/T spine with and without contrast to assess current disease burden in 6 months -bloodwork for MS mimickers (lyme, SSa, SSb, dsDNA, RF, B12, folate, HIV My Note Progress Notes 04/01/2024 09:18 AM Insert SmartText -check vitamin D level and JCV Ab status -PT/OT/ST referral for functional evaluation Symptomatic management Urinary symptoms :will consider urology referral Anxiety/depression: Continue follow-up with therapy Persistent blurry vision: Will refer to neuro-ophthalmology -RTC in 2 months for follow up [...] follow-up appointments. The entire time spent in this process was greater than 120 minutes. The majority of the actual rgxq-zi-mjtb visit was spent counseling the patient with respect to the current neurological picture. Saul Horn MD documented in this encounter Plan of Treatment Upcoming Encounters Date Type Department Care Team (Late st Contact Info) Description 06/01/2024 3:30 PM EDT Office Visit [facility] [place] [address] [facility] [address] [place] [phone] Saul Horn MD 175 [facility] [address] [place] [phone] 06/17/2024 2:30 PM EDT Office Visit Adult Medicine [facility] [address] [place] [phone] Mara Barakat MD [address] [place] [address] 06/30/2024 1:00 PM EDT Appointment [facility] MS Outpatient Rehabilititation [facility] [address] [phone] Scheduled Referrals Name Type Priority Associated Diagnoses Order Schedule Ambulatory referral to Physical Therapy and Athletic Training Outpatient Referral Routine Multiple sclerosis (CMS/HCC) High risk medication use 1 Occurrences starting 04/01/2024 until 04/01/2025 Ambulatory referral to Occupational Therapy Outpatient Referral Routine Multiple sclerosis ([facility]/HCC) High risk medication use 1 Occurrences starting 04/01/2024 until 04/01/2025 Ambulatory referral to Speech Therapy Outpatient Referral Routine Multiple sclerosis (CMS/HCC) High risk medication use 1 Occurrences starting 04/01/2024 until 04/01/2025 documented as of this encounter Results * Rheumatoid factor (04/01/2024 10:52 AM EST) [facility] Rheumatoid Factor <10.0 <15.0 I Unit/mL LAB CHEMISTRY METHOD 04/01/2024 2:[address] [facility] Blood Venous blood specimen / Unknown Venipuncture / Unknown 04/01/2024 10:52 AM EST 04/01/2024 10:52 AM EST us Saul Horn MD LAB BLOOD ORDERABLES Fin al Result Performing Organization Address City/[facility]/ZIP Co de Phone Number [facility] [address] [place] [address], * ZACHARY IFA with titer and pattern (04/01/2024 10:52 AM EST) [facility] ZACHARY Negative Negative 04/02/2024 1:[address] [facility] Blood Venous blood specimen / Unknown Venipuncture / Unknown 04/01/2024 10:52 AM EST 04/01/2024 10:52 AM EST us Saul Horn MD LAB BLOOD ORDERABLES Fin al Result Performing Organization Address City/[facility]/ZIP Co de Phone Number [facility] [address] [place] [address], [place] [phone] * HIV 1,2 antibody, p24 antigen with reflex to differentiation (04/01/2024 10:52 AM EST) [facility] HIV Combo AB/AG Negative Negative LAB CHEMISTRY METHOD 04/01/2024 3:[address] [facility] Blood Venous blood specimen / Unknown Venipuncture / Unknown 04/01/2024 10:52 AM EST 04/01/2024 10:[address] [facility] - 04/01/2024 3:08 PM EST This assay is a 4th generation assay allowing for earlier detection of HIV infection by detecting the presence of the HIV-1 p24 antigen as well as the traditional antibodies to HIV type 1 (including group O) and type 2. ??Use of a 4th generation assay is the current CDC recommendation for HIV screening. Saul Horn MD LAB BLOOD ORDERABLES Fin al Result [facility] [address] [place] [address], [place] [phone] * Hepatic function panel (04/01/2024 10:52 AM EST) [facility] Total Protein 7.0 6.0 - 8.0 g/dL LAB CHEMISTRY METHOD 04/01/2024 2:[address] [facility] Albumin 3.8 3.2 - 5.0 g/dL LAB CHEMISTRY METHOD 04/01/2024 2:[address] [facility] Total Bilirubin 0.3 0.0 - 1.4 mg/dL LAB CHEMISTRY METHOD 04/01/2024 2:[address] [facility] Bilirubin, Direct 0.2 0.0 - 0.3 mg/dL LAB CHEMISTRY METHOD 04/01/2024 2:[address] [facility] Bilirubin, Indirect 0.1 0.0 - 1.1 mg/dL LAB CHEMISTRY METHOD 04/01/2024 2:[address] [facility] ALT (SGPT) 22 10 - 60 unit/L LAB CHEMISTRY METHOD 04/01/2024 2:[address] [facility] AST (SGOT) 20 10 - 42 unit/L LAB CHEMISTRY METHOD 04/01/2024 2:[address] [facility] Alkaline Phosphatase 53 42 - 121 unit/L LAB CHEMISTRY METHOD 04/01/2024 2:[address] [facility] Blood Venous blood specimen / Unknown Venipuncture / Unknown 04/01/2024 10:52 AM EST 04/01/2024 10:52 AM EST us Saul Horn MD LAB BLOOD ORDERABLES Fin al Result Performing Organization Address [facility]/ZIP Co de Phone Number [facility] [address] [place] [address], * Myelin oligodendrocyte glycoprotein antibody with reflex to titer (04/01/2024 10:52 AM EST) [facility] Signature MOG Antibody, Cell-based IFA Negative Negative 04/06/2024 6:05 AM EST [facility] Blood Venous blood specimen / Unknown Venipuncture / Unknown 04/01/2024 10:52 AM EST 04/01/2024 10:52 AM EST Narrative [facility] - 04/06/2024 6:05 AM EST Test(s) [id number] Antibody, Cell-based IFA was developed and its performance characteristics determined by [facility]. It has not been cleared or approved by the Food and Drug Administration. Performed at: ??01 - [address] ??[id number] Textile Machinery Instructor: Stan Wayne MD, Phone: ??[phone] us Saul Horn MD LAB BLOOD ORDERABLES Fin al Result [facility] * Hepatitis B core antibody IgM (04/01/2024 10:52 AM EST) Hep B Core IgM Negative Negative LAB CHEMISTRY METHOD 04/01/2024 3:[address] [facility] Blood Venous blood specimen / Unknown Venipuncture / Unknown 04/01/2024 10:52 AM EST 04/01/2024 10:[address] [facility] - 04/01/2024 3:14 PM EST Over the counter supplements containing high doses of biotin may interfere with this assay. ??If interference is suspected, patients shoud be retested after refraining from biotin supplements for 72 hours. us Saul Horn MD LAB BLOOD ORDERABLES Fin al Result Performing Organization Address [facility] de Phone Number [facility] [address] [place] [address], [place] [phone] * Hepatitis B surface antigen with reflex to confirmation (04/01/2024 10:52 AM EST) Pathologist [facility] Hepatitis B Surface Ag Negative Negative LAB CHEMISTRY METHOD 04/01/2024 2:[address] [facility] Blood Venous blood specimen / Unknown Venipuncture / Unknown 04/01/2024 10:52 AM EST 04/01/2024 10:[address] [facility] - 04/01/2024 2:39 PM EST Over the counter supplements containing high doses of biotin may interfere with this assay. ??If interference is suspected, patients shoud be retested after refraining from biotin supplements for 72 hours. us Saul Horn MD LAB BLOOD ORDERABLES Fin al Result Performing Organization Address City/[facility]/ZIP Co de Phone Number [facility] [address] [place] [address], [place] [phone] * Hepatitis C antibody (04/01/2024 10:52 AM EST) Pathologist [facility] Hepatitis C Antibody Negative Negative LAB CHEMISTRY METHOD 04/01/2024 3:[address] [facility] Blood Venous blood specimen / Unknown Venipuncture / Unknown 04/01/2024 10:52 AM EST 04/01/2024 10:52 AM EST Saul Horn MD LAB BLOOD ORDERABLES Fin al Result [facility] [address] [place] [address], * (ABNORMAL) JCV polyoma virus antibody with reflex to inhibition assay (04/01/2024 10:52 AM EST) [facility] Index Value 1.63 04/06/2024 10:05 AM EST [facility] JCV Antibody Positive( A) 04/06/2024 10:05 AM EST [facility] Comment: Index interpretive criteria: ? <0.20 negative ? 0.20-0.40 indeterminate ? >0.40 positive Interpretation Note 04/06/2024 10:05 AM EST [facility] Comment: INTERPRETATION Negative: Antibodies to JCV not detected. Indeterminate: Low level reactivity detected, see Inhibition Assay result below for the final antibody result. Positive: Antibodies to CELINA virus (JCV) detected indicating the patient has been exposed to JCV at an undetermined time. The STRATIFY JCV(R) DxSelect(TM) Antibody Test is an enzyme-linked immunosorbent assay (JOELLE) designed to detect JCV antibodies to help identify individuals who have been exposed to the virus. Samples with low level reactivity in the detection assay are retested in a confirmation (inhibition) assay to confirm presence or absense of JCV-specific antibodies. Retrospective analyses of post marketing data from various sources, including observational studies and spontaneous reports obtained worldwide, suggest that the risk of developing PML may be associated with relative levels of serum anti-JCV antibody as measured by anti-JCV antibody index. (1) (1) TYSABRI(natalizumab)US Prescribing Information Interpretation Note 04/06/2024 10:05 AM EST [facility] Comment: Positive: Antibodies to CELINA virus (JCV) detected ?indicating the patient has been exposed ?to JCV at an undetermined time Negative: Antibodies to JCV not detected Blood Venous blood specimen / Unknown Venipuncture / Unknown 04/01/2024 10:52 AM EST 04/01/2024 10:52 AM EST Narrative [facility] - 04/06/2024 10:05 AM EST Performed at: ??01 - [facility] [address] [place] ??[id number] Textile Machinery Instructor: Barbara Warner MD, Phone: ??[phone] Saul Horn MD LAB BLOOD ORDERABLES Fin al Result Performing Organization Address [facility] de Phone Number [facility] * (ABNORMAL) Varicella zoster antibody IgG (04/01/2024 10:52 AM EST) Varicella IgG Negative( A) Positive LAB CHEMISTRY METHOD 04/02/2024 10:[address] [facility] Varicella Zoster IgG 0.23(L) >=1.00 S/CO LAB CHEMISTRY METHOD 04/02/2024 10:[address] [facility] Blood Venous blood specimen / Unknown Venipuncture / Unknown 04/01/2024 10:52 AM EST 04/01/2024 10:[address] [facility] - 04/02/2024 10:14 AM EST Interpretation >= 1.00 S/CO is considered to be consistent with Immunity us Saul Horn MD LAB BLOOD ORDERABLES Fin al Result Performing Organization Address [facility] de Phone Number [facility] [address] [place] [address], * Immunoglobulin IgM (04/01/2024 10:52 AM EST) IgM 107 23 - 259 mg/dL LAB CHEMISTRY METHOD 04/01/2024 2:[address] [facility] Blood Venous blood specimen / Unknown Venipuncture / Unknown 04/01/2024 10:52 AM EST 04/01/2024 10:52 AM EST us Saul Horn MD LAB BLOOD ORDERABLES Fin al Result Performing Organization Address City/[facility]/ZIP Co de Phone Number [facility] [address] [place] [address], [place] [phone] * Immunoglobulin IgG (04/01/2024 10:52 AM EST) Total IgG 897 549 - 1,584 mg/dL LAB CHEMISTRY METHOD 04/01/2024 2:[address] [facility] Blood Venous blood specimen / Unknown Venipuncture / Unknown 04/01/2024 10:52 AM EST 04/01/2024 10:52 AM EST us Saul Horn MD LAB BLOOD ORDERABLES Fin al Result Performing Organization Address City/[facility]/ZIP Co de Phone Number [facility] [address] [place] [address], [place] [phone] * Immunoglobulin IgA (04/01/2024 10:52 AM EST) IgA 208 61 - 348 mg/dL LAB CHEMISTRY METHOD 04/01/2024 2:[address] [facility] Blood Venous blood specimen / Unknown Venipuncture / Unknown 04/01/2024 10:52 AM EST 04/01/2024 10:52 AM EST us Saul Horn MD LAB BLOOD ORDERABLES Fin al Result [facility] [address] [place] [address], [place] [phone] * (ABNORMAL) Borrelia burgdorferi antibody (04/01/2024 10:52 AM EST) [facility] Lyme Ab Positive(A ) Negative LAB CHEMISTRY METHOD 04/02/2024 10:[address] [facility] Blood Venous blood specimen / Unknown Venipuncture / Unknown 04/01/2024 10:52 AM EST 04/01/2024 10:52 AM EST us Saul Horn MD LAB BLOOD ORDERABLES Fin al Result Performing Organization Address [facility]/ZIP Co de Phone Number [facility] [address] [place] [address], * BUN (04/01/2024 10:52 AM EST) [facility] BUN 8 5 - 25 mg/dL LAB CHEMISTRY METHOD 04/01/2024 2:[address] [facility] Blood Venous blood specimen / Unknown Venipuncture / Unknown 04/01/2024 10:52 AM EST 04/01/2024 10:52 AM EST us Saul Horn MD LAB BLOOD ORDERABLES Fin al Result Performing Organization Address [facility]/ZIP Co de Phone Number [facility] [address] [place] [address], [place] [phone] * Creatinine (04/01/2024 10:52 AM EST) [facility] Creatinine 0.64 0.50 - 1.10 mg/dL LAB CHEMISTRY METHOD 04/01/2024 2:[address] [facility] eGFR 119 >=60 mL/min/1. 73m2 LAB CHEMISTRY METHOD 04/01/2024 2:[address] [facility] Comment:Calculation based on the??Chronic Kidney Disease Epidemiology Collaboration (CKD-EPI) equation refit??without adjustment for race. Blood Venous blood specimen / Unknown Venipuncture / Unknown 04/01/2024 10:52 AM EST 04/01/2024 10:52 AM EST us Saul Horn MD LAB BLOOD ORDERABLES Fin al Result Performing Organization Address [facility] Co de Phone Number [facility] [address] [place] [address], [place] [phone] * (ABNORMAL) Vitamin D 25 hydroxy (04/01/2024 10:52 AM EST) Vit D, 25-Hydroxy 29.4(L) 30.0 - 80.0 ng/mL LAB CHEMISTRY METHOD 04/01/2024 2:[address] [facility] Blood Venous blood specimen / Unknown Venipuncture / Unknown 04/01/2024 10:52 AM EST 04/01/2024 10:52 AM EST us Saul Horn MD LAB BLOOD ORDERABLES Fin al Result Performing Organization Address [facility] de Phone Number [facility] [address] [place] [address], [place] [phone] documented in this encounter Visit Diagnoses Diagnosis Multiple sclerosis (CMS/HCC)- Primary Multiple sclerosis High risk medication use documented in this encounter Discontinued Medications Medication Sig Discontinue Reason Start Date End Da te OMEGA-3 FATTY ACIDS-FISH OIL ORAL Therapy completed 04/01/2024 traZODone (DESYREL) 50 mg tablet TAKE 1 TABLET BY MOUTH AT BEDTIME NEEDED FOR SLEEP Therapy completed 02/27/2023 04/01/2024 norethindrone ac-eth estradio (LOESTRIN) 1.5-30 mg-mcg per tablet Take 1 Tablet by mouth daily. Therapy completed 09/03/2023 04/01/2024 FLUoxetine (PROzac) 10 mg capsule Take 1 capsule (10 mg total) by mouth 1 (one) time each day. Therapy completed 03/17/2024 04/01/2024 documented as of this encounter Historical Medications * This list may reflect changes made after this encounter. doxylamine succinate (UNISOM, DOXYLAMINE, ORAL) Take 25 mg by mouth. 08/03/2023 added in this encounter Orders Lab Orders Without Results Count Last Ordered D ate First Ordered Date MISCELLANEOUS LAB TEST 1 04/01/2024 documented in this encounter Care Teams Supervisor Drying And Winding Relationship Specialty Start Date End Date Mara Barakat MD [address] [place] [address] PCP - General Internal Medicine 10/30/21 documented as of this encounter
--- OUTSIDE RECORDS SUMMARY | 2024-04-24 13:28 | XMS_ITS | Encounter Summary ---
Author Organization [facility] Address [address] [place] [address] Care Team Providers Care Commercial Reporter Name Role Phone Mara Barakat MD Primary Care Provider [phone] Reason for Visit * Reason Onset Date Comments BRIUMVI AUTH RQST 04/05/2024 AUTH NOT REQRD 04/05/2024 Encounter Details Date Type Department Care Team (Late st Contact Info) Description 04/05/2024 Telephone [facility] Outpatient Rehabil[facility] [address] [phone] Saul Horn MD [facility] [address] [place] [phone] BRIUMVI AUTH RQST; AUTH NOT REQRD Social History Tobacco Use Types Packs/Day Years [...] encounter Progress Notes * Keagan Matthews - 04/05/2024 1:17 PM EST Per Rena- Jaswantiumkerry does not require auth or a quantity limit; medication is covered under medical benefit with auth (autofax #[phone]). * Keagan Matthews - 04/05/2024 10:48 AM EST Briumvi auth rqst forms [facility] documented in this encounter Plan of Treatment Upcoming Encounters Date Type Department Care Team (Late st Contact Info) Description 06/01/2024 3:30 PM EDT Office Visit [facility] [place] [address] [facility] [address] [place] [phone] Saul Horn MD 175 [facility] [address] [place] [phone] 06/17/2024 2:30 PM EDT Office Visit [facility] [address] [place] [address] Mara Barakat MD [address] [place] [address] 06/30/2024 1:00 PM EDT Appointment [facility] MS Outpatient Rehabilititation - [address] [phone] documented as of this encounter Visit Diagnoses Not on filedocumented in this encounter Additional Health Concerns Infection Onset Date Last Indicated Resolved Time Varicella 04/01/2024 04/01/2024 documented as of this encounter Care Teams Commercial Reporter Relationship Specialty Start Date End Date Mara Barakat MD [address] [place] [address] PCP - General Internal Medicine 10/30/21 documented as of this encounter
--- OUTSIDE RECORDS SUMMARY | 2024-04-24 13:28 | XMS_ITS | Encounter Summary ---
Author Organization [facility] Address [address] [place] [address] Care Team Providers Care [employer] Observer Name Role Phone Mara Barakat MD Primary Care Provider [phone] Reason for Visit * Reason Onset Date Comments lab orders 03/24/2024 Encounter Details Date Type Department Care Team ([facility] st Contact Info) Description 03/24/2024 Telephone Adult Medicine [facility] [address] [place] [address] Mara Barakat MD [address] [place] [address] lab orders Social History Tobacco Use Types Packs/Day Years [...] as of this encounter Progress Notes * Sejal Marsh - 03/24/2024 10:41 AM EST Patient call requires triage: Symptoms patient is presenting: Patient is reaching out regarding most recent lab results. Patient has not gotten letter yet, however did mail out 03/24. How long has patient had these symptoms?: 03/24/2024 For ALL patients calling to schedule any appointment (routine, sick visit, follow up, consult, etc.) in the outpatient setting please ask the following questions: Do you have fever of higher than 101, sore throat with difficulty swallowing or severe shortness ofbreath? no If YES to any of these above symptoms, send a message to triage and do not book. Red dot. If no, an audio or video visit should be booked. Have you had close contact with someone with Coronavirus in the last 14 days? no Have you traveled abroad? no Have you traveled recently to another state outside of [place], [place], [place], [place], [place], [place], [place]? no o If yes, did you quarantine for 14 days or have a negative covid test? no If yes to any of the above, patient is not to be scheduled in office until after 14 day quarantine or negative covid test. If pain or injury related was it due to an accident at work or from a motor vehicle accident? If yes, date of accident/Injury: No If yes, gather 3rd libertarian insurance information Third Libertarian Information: not applicable PCP: Mara Barakat MD Payor: [employer] PLAN / Plan: [email or web address] MEDICAID / Product Type: *No Product type* / documented in this encounter Plan of Treatment Upcoming Encounters Date Type Department Care Team (Late st Contact Info) Description 06/01/2024 3:30 PM EDT Office Visit [facility] [place] [address] [facility] [address] [place] [phone] Saul Horn MD [address] [phone] 06/17/2024 2:30 PM EDT Office Visit Adult Medicine [address] [phone] Mara Barakat MD [address] [place] [id number] 06/30/2024 1:00 PM EDT Appointment [facility] [place] [address] [facility] [address] [place] [phone] documented as of this encounter Visit Diagnoses Not on filedocumented in this encounter Additional Health Concerns Infection Onset Date Last Indicated Resolved Time Varicella 04/01/2024 04/01/2024 documented as of this encounter Care Teams [employer] Observer Relationship Specialty Start Date End Date Mara Barakat MD [address] [place] [address] PCP - General Internal Medicine 10/30/21 documented as of this encounter
--- OUTSIDE RECORDS SUMMARY | 2024-04-24 13:28 | XMS_ITS | Clinical Summary ---
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 [facility] IgA 208 61 - 348 mg/dL LAB CHEMISTRY METHOD 04/01/2024 2:20 PM EST [facility] Blood Venous blood specimen / Unknown Venipuncture / Unknown 04/01/2024 10:52 AM EST 04/01/2024 10:52 AM EST us Saul Horn MD LAB BLOOD ORDERABLES Fin al Result Performing Organization Address City/[facility]/ZIP Co de Phone Number [facility] [address] [place] [address], [place] [phone] * Immunoglobulin IgM (04/01/2024 10:52 AM EST) IgM 107 23 - 259 mg/dL LAB CHEMISTRY METHOD 04/01/2024 2:29 PM EST [facility] Blood Venous blood specimen / Unknown Venipuncture / Unknown 04/01/2024 10:52 AM EST 04/01/2024 10:52 AM EST us Saul Horn MD LAB BLOOD ORDERABLES Fin al Result Performing Organization Address City/[facility]/ZIP Co de Phone Number [facility] [address] [place] [address], [place] [phone] * Immunoglobulin IgG (04/01/2024 10:52 AM EST) Total IgG 897 549 - 1,584 mg/dL LAB CHEMISTRY METHOD 04/01/2024 2:29 PM EST [facility] Blood Venous blood specimen / Unknown Venipuncture / Unknown 04/01/2024 10:52 AM EST 04/01/2024 10:52 AM EST us Saul Horn MD LAB BLOOD ORDERABLES Fin al Result [facility] [address] [place] [address], [place] [phone] * Hepatic function panel (04/01/2024 10:52 AM EST) Total Protein 7.0 6.0 - 8.0 g/dL LAB CHEMISTRY METHOD 04/01/2024 2:20 PM EST [facility] Albumin 3.8 3.2 - 5.0 g/dL LAB CHEMISTRY METHOD 04/01/2024 2:20 PM [facility] Total Bilirubin 0.3 0.0 - 1.4 mg/dL LAB CHEMISTRY METHOD 04/01/2024 2:20 PM [facility] Bilirubin, Direct 0.2 0.0 - 0.3 mg/dL LAB CHEMISTRY METHOD 04/01/2024 2:20 PM [facility] Bilirubin, Indirect 0.1 0.0 - 1.1 mg/dL LAB CHEMISTRY METHOD 04/01/2024 2:20 PM [facility] ALT (SGPT) 22 10 - 60 unit/L LAB CHEMISTRY METHOD 04/01/2024 2:20 PM [facility] AST (SGOT) 20 10 - 42 unit/L LAB CHEMISTRY METHOD 04/01/2024 2:20 PM [facility] Alkaline Phosphatase 53 42 - 121 unit/L LAB CHEMISTRY METHOD 04/01/2024 2:20 PM [facility] Blood Venous blood specimen / Unknown Venipuncture / Unknown 04/01/2024 10:52 AM EST 04/01/2024 10:52 AM EST us Saul Horn MD LAB BLOOD ORDERABLES Fin al Result [facility] [address] [place] [address], * Phosphorus (03/17/2024 4:13 PM EST) Phosphorus 3.1 2.5 - 4.5 mg/dL LAB CHEMISTRY METHOD 03/17/2024 6:54 PM EST [facility] Blood Venous blood specimen / Unknown Venipuncture / Unknown 03/17/2024 4:13 PM EST 03/17/2024 4:13 PM EST Mara Barakat MD LAB BLOOD ORDERABLES Final Result [facility] [address] [place] [address], [place] [phone] * Magnesium (03/17/2024 4:13 PM EST) Magnesium 2.1 1.9 - 2.6 mg/dL LAB CHEMISTRY METHOD 03/17/2024 6:54 PM EST [facility] Blood Venous blood specimen / Unknown Venipuncture / Unknown 03/17/2024 4:13 PM EST 03/17/2024 4:13 PM EST Mara Barakat MD LAB BLOOD ORDERABLES Final Result [facility] [address] [place] [address], [place] [phone] * Vitamin B12 (03/17/2024 4:13 PM EST) Vitamin B-12 513 250 - 900 pcg/mL LAB CHEMISTRY METHOD 03/17/2024 7:17 PM EST [facility] Blood Venous blood specimen / Unknown Venipuncture / Unknown 03/17/2024 4:13 PM EST 03/17/2024 4:13 PM EST Mara Barakat MD LAB BLOOD ORDERABLES Final Result [facility] [address] [place] [address], [place] [phone] * Creatine kinase (03/17/2024 4:13 PM EST) Pathologist [facility] Total CK 73 22 - 269 unit/L LAB CHEMISTRY METHOD 03/17/2024 7:17 PM EST [facility] Blood Venous blood specimen / Unknown Venipuncture / Unknown 03/17/2024 4:13 PM EST 03/17/2024 4:13 PM EST Mara Barakat MD LAB BLOOD ORDERABLES Final Result [facility] [address] [place] [address], [place] [phone] * Calcium, ionized (03/17/2024 4:13 PM EST) [facility] Calcium Ionized 5.0 4.6 - 5.4 mg/dL 03/22/2024 12:45 PM EST [facility] Comment: Test performed at [facility], [address], [place], [place] ??[address] ? [phone] Antonina Frias MD, PhD - Medication Administration Professional Blood Venous blood specimen / Unknown Venipuncture / Unknown 03/17/2024 4:13 PM EST 03/17/2024 4:13 PM EST Mara Barakat MD LAB BLOOD ORDERABLES Final Result Performing Organization Address City/[facility]/ZIP Co de Phone Number [facility] [address] [place] [address] * Basic metabolic panel (03/17/2024 4:13 PM EST) [facility] Sodium 137 133 - 145 mmol/L LAB CHEMISTRY METHOD 03/17/2024 6:54 PM EST [facility] Potassium 3.6 3.5 - 5.5 mmol/L LAB CHEMISTRY METHOD 03/17/2024 6:54 PM EST [facility] Chloride 108 96 - 110 mmol/L LAB CHEMISTRY METHOD 03/17/2024 6:54 PM [facility] CO2 22 21 - 32 mmol/L LAB CHEMISTRY METHOD 03/17/2024 6:54 PM [facility] Anion Gap 7 3 - 11 LAB CHEMISTRY METHOD 03/17/2024 6:54 PM [facility] Glucose 90 70 - 100 mg/dL LAB CHEMISTRY METHOD 03/17/2024 6:54 PM [facility] BUN 9 5 - 25 mg/dL LAB CHEMISTRY METHOD 03/17/2024 6:54 PM [facility] Creatinine 0.75 0.50 - 1.10 mg/dL LAB CHEMISTRY METHOD 03/17/2024 6:54 PM [facility] eGFR 107 >=60 mL/min/1. 73m2 LAB CHEMISTRY METHOD 03/17/2024 6:54 PM [facility] Comment:Calculation based on the??Chronic Kidney Disease Epidemiology Collaboration (CKD-EPI) equation refit??without adjustment for race. BUN/Creatinine Ratio 12.0 LAB CHEMISTRY METHOD 03/17/2024 6:54 PM [facility] Calcium 9.1 8.5 - 10.5 mg/dL LAB CHEMISTRY METHOD 03/17/2024 6:54 PM [facility] Blood Venous blood specimen / Unknown Venipuncture / Unknown 03/17/2024 4:13 PM EST 03/17/2024 4:13 PM EST us Mara Barakat MD LAB BLOOD ORDERABLES Final Result [facility] [address] [place] [address], * XR Forearm 2 Views Left (03/17/2024 3:39 PM EST) Anatomical Region Laterality Modality Upper Extremities, Forearm Left Radio graphic Imaging 03/17/2024 8:34 PM EST Impressions 03/17/2024 8:35 PM EST No acute fracture or dislocation of the left forearm. -------- FINAL REPORT -------- Dictated By: Radha Stevens Dictated Date: 03/17/2024 20:34 ET Assigned Physician: Radha Stevens Reviewed and Electronically Signed By: Radha Stevens Signed Date: 03/17/2024 20:35 ET Workstation ID: [id number] Transcribed By: Self Edit Transcribed Date: 03/17/2024 20:34 ET Narrative 03/17/2024 8:35 PM EST HISTORY: left forearm muscle tightness TECHNIQUE: Frontal and lateral radiographs of the left forearm. COMPARISON: None FINDINGS: The forearm demonstrates normal mineralization and articulation with no fracture or malalignment. The visualized wrist and elbow articulations are well maintained. ??No significant soft tissue swelling is identified. Procedure Note Radha Stevens MD - 03/17/2024 HISTORY: left forearm muscle tightness TECHNIQUE: Frontal and lateral radiographs of the left forearm. COMPARISON: None FINDINGS: The forearm demonstrates normal mineralization and articulationwith no fracture or malalignment. The visualized wrist and elbowarticulations are well maintained. No significant soft tissue swelling isidentified. IMPRESSION: No acute fracture or dislocation of the left forearm. -------- FINAL REPORT -------- Dictated By: Radha Stevens Dictated Date: 03/17/2024 20:34 ET Assigned Physician: Radha Stevens Reviewed and Electronically Signed By: Radha Stevens Signed Date: 03/17/2024 20:35 ET Workstation ID: [id number] Transcribed By: Self Edit Transcribed Date: 03/17/2024 20:34 ET us Mara Barakat MD IMG XR PROCEDURES Final Res ult * Cervical Cancer Screening: HPV (12/08/2020) Pathologist On license of [facility] Cervical Cancer Screening: HPV Negative, Abstracted Historical Provider HEALTH MAINTENANCE Final Result from Last 3 Months or Most Recently Relevant to Health Maintenance Additional Health Concerns Infection Onset Date Last Indicated Varicella 04/01/2024 04/01/2024 Insurance [employer]ISELE [employer]HEZ [id number] [facility] Care Teams Curriculum And Instruction Specialist Relationship Specialty Start Date End Date Mara Barakat MD [address] [place] [address] PCP - General Internal Medicine 10/30/21
[2024-04-24 14:24] LABS: Appearance Urine Clear; Color Urine Yellow; Glucose Urine UA Negative (Negative); Leukocyte Esterase Urine Negative (Negative); Nitrite Urine Negative (Negative); PH 7.5 (5.0-9.0); Specific Gravity - Urine <= 1.005 (1.005-1.025); Urine Blood Negative (Negative); Urine Ketones Negative (Negative); Urine Protein Negative (Neg-Trace)
[2024-04-24 14:29] LABS: Bacteria Urine None Seen (None Seen); Hyaline Casts Urine 0-2 /LPF (0-2); RBC Urine 0-2 /HPF (0-2); Squamous Epithelial Cell Urine 0-2 /HPF (0-2); WBC Urine 0-5 /HPF (0-5)
[2024-04-24 14:58] VITALS: BP 121/71; PULSE 68; RESP 16; TEMP 36.8; O2SAT 99
[2024-04-24 15:24] LABS: UPreg QC Valid YES; Urine Pregnancy NEGATIVE (NEGATIVE)
[2024-04-24] MEDS: Cyclobenzaprine HCl 10 MG TABLET PO (15:24)
--- NOTE | 2024-04-24 15:54 | PC.NURSE ---
patient a&ox3, c/o back pain, pt medicated per order. upon medication pt stated Is that it, thats all you are giving me? This nurse explained to the patient that we need to give the medication some time to work and the provider will re-evaluate her. plan of care ongoing
--- NOTE | 2024-04-24 16:47 | PC.NURSE ---
patient continued to be agitated and demanding, pt called hospital switchboard yelling, called security yelling and per provider gladys the patient also dialed 911 from her cell phone. provider went to see the patient who began yelling at her as well. pt opted to get dressed and leave against medical advice. charge nurse is aware, pt refusing to sign paperwork, refused vitals and made a mess in emc 1 by throwing water, flipping over the mattress, throwing crackers she had crushed throughout the room.
[2024-04-24 16:50] VITALS: BP 121/71; PULSE 68; RESP 16; TEMP 36.8; O2SAT 99
== END 2024-04-24 16:52 | disposition left against medical advice (07) ==
PROVIDERS: Nurse Practitioner Family; Emergency Provider Emergency Medicine; PCP Internal Medicine
DX: M54.6 Pain in thoracic spine (principal); G35 Multiple sclerosis; Z79.899 Other long term (current) drug therapy
CPT/HCPCS: 72072; 72100; 81001; 81025; 99283; 99284

== ENCOUNTER → 2024-04-24 12:02 | Outpatient (BNV) | payer OTHER, SELFPAY | PROVIDERS: PCP Internal Medicine; Visit Provider Radiology Vascular & Interventional Radiology | DX: M54.50 Low back pain, unspecified (principal); M54.6 Pain in thoracic spine | CPT/HCPCS: 72072; 72100 ==